=== PATIENT | female | born 2000 | race Two or more races ===

== ENCOUNTER 2021-08-25 00:52 | Emergency (ER) | payer SELFPAY ==
[~2021-08-25] VITALS: Ht 160 cm; Wt 45.0 kg
[2021-08-25] MEDS ORDERED: KETOROLAC 60MG/2ML VIAL IM ONE (03:15)
[2021-08-25 03:39] VITALS: BP 115/84
[2021-08-25] MEDS ORDERED: IBUP-2029 MT (05:30)
[2021-08-25] MEDS ORDERED: CYCL5TAB MT (05:30)
== END 2021-08-25 05:45 | disposition home or self-care (01) ==
LOC: ER 00:52
DX: S20.211A Contusion of right front wall of thorax, initial encounter (principal); S09.8XXA Other specified injuries of head, initial encounter; R10.31 Right lower quadrant pain; M54.2 Cervicalgia; V49.59XA Passenger injured in collision with other motor vehicles in traffic accident, initial encounter; Y93.89 Activity, other specified; Y92.488 Other paved roadways as the place of occurrence of the external cause
CPT/HCPCS: 71101; 74176; 81025; 96372; 99284; J1885